=== PATIENT | female | born 1935 | race Caucasian/White ===

== ENCOUNTER 2017-07-11 11:15 | Outpatient (CLI) | payer MEDICARE ==
--- NOTE | 2017-07-13 10:33 | PET ---
PET CT: HISTORY: Stage 4 lung cancer. TECHNIQUE: A PET CT was performed from the skull base through the mid thigh after administration of 15.47 mCi of F18-FDG. FINDINGS: There are multiple peripheral pleural nodules in the right hemithorax. The largest measures approxim ately 3.7 cm in size. These nodules are all hypermetabolic with a maximum SUV value of 11.1. There is a right pleural effusion which is partially loculated. There is hypermetabolic activity in the ri ght hilar region which may represent a hypermetabolic right hilar lymph node versus a more medial ple ural plaque which is hypermetabolic. No other hypermetabolic lymph nodes are seen in the mediastinum or hilar regions. No hypermetabolic activity is seen in the left thorax. No suspicious hypermetabolic activity is seen in the neck, abdomen, or pelvis. Degenerative changes are seen in the spine. No suspicious hypermetabolic osseous lesions are identified. Atherosclerotic calcifications are seen in the aorta. IMPRESSION: Diffuse hypermetabolic activity throughout the right hemithorax. There are multiple hypermetabolic p leural nodules. Hypermetabolic activity in the right hilar region may represent a hypermetabolic rig ht hilar lymph node versus a more medial pleural plaque. POS: [facility]
== END 2017-07-11 11:16 | disposition home or self-care (01) ==
LOC: PET 11:15
PROVIDERS: ATTEND Internal Medicine Hematology & Oncology
DX: C34.81 Malignant neoplasm of overlapping sites of right bronchus and lung (principal); R91.8 Other nonspecific abnormal finding of lung field
CPT/HCPCS: 78815; A9552

== ENCOUNTER 2017-07-25 08:31 | Emergency (ER) | payer MEDICARE ==
[2017-07-25 09:54] LABS: Hematocrit 37.2 % (36.0-47.0); Mean Platelet Volume 9.6 fL (7.4-10.4); Neutrophil 5 % (42-75); Red Blood Cell (RBC) Count 4.26 mill/uL (4.20-5.40); White Blood Cell (WBC) Count 0.7 thou/uL (4.8-10.8)
[2017-07-25 10:04] LABS: Lactic Acid - Sepsis 1.2 mmol/L (0.5-2.2)
[2017-07-25 10:08] LABS: ALT (SGPT) 17 U/L (8-55); AST (SGOT) 32 U/L (5-34); Alkaline Phosphatase 62 U/L (40-150); Anion Gap 17 mmol/L (10-20); BUN (Urea Nitrogen) 16 mg/dL (9.8-20.1); Bilirubin, Total 0.6 mg/dL (0.2-1.2); CK (CPK) 27 U/L (29-168); Calc. Creatinine Clearance 0 mL/min (70-130); Calcium 10.2 mg/dL (7.8-10.44); Carbon Dioxide 26 mmol/L (23-31); Chloride 95 mmol/L (98-107); Estimated GFR-MDRD 86; Globulin 4.1 g/dL (2.4-3.5); Protein, Total 7.6 g/dL (6.0-8.3)
[2017-07-25 10:11] LABS: Troponin I 0.013 ng/mL (< 0.028)
[2017-07-25 10:39] LABS: Bilirubin Negative (Negative); Blood, Urine Small (Negative); Glucose, Urine (Dipstick) Negative (Negative); Ketone, Urine 15 mg/dL (Negative); Nitrite Negative (Negative); Protein, Urine (Dipstick) 30 mg/dL (Neg-Trace)
[2017-07-25 10:42] LABS: Bacteria/HPF None Seen HPF (None Seen); Hyaline Casts/LPF 0-3 HYALINE CAST LPF (0-3 Hyaline); Squamous Epithelial 0-3 HPF (0-3)
[2017-07-25] MEDS ORDERED: Cefepime 2 GM/10 ML SYR ONE (10:58)
[2017-07-25 11:03] LABS: Renal Epithelial None Seen HPF (0-3); Transitional Epithelial NONE SEEN HPF (0-3)
--- NOTE | 2017-07-25 11:18 | RAD ---
AP VIEW CHEST: Date: 07/25/17 HISTORY: Weakness. FINDINGS: Comparison made to previous exam from 05/03/05. AP view of chest demonstrates a right-sided chest tube in place. There is some right pleural thickeni ng and a small right-sided pleural effusion. The left lung is well aerated. Calcification of the aort a is seen. IMPRESSION: Right-sided chest tube and right pleural thickening and small effusion. POS: [facility]
--- NOTE | 2017-07-25 13:35 | CON ---
DATE OF CONSULTATION: 07/25/2017 The patient is in the emergency room and being admitted on 07/25/2017. HISTORY OF PRESENT ILLNESS: Ms. 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 She got her first cycle of chemotherapy with carboplatin and etoposide approximately 10 days ago and for the last 4-5 days has gotten weaker as well as decreased her oral input at home. Notably, she had lost 30 pounds prior to the chemotherapy and has continued to not eat or drink very well at home. Her family was concerned s he was dehydrated because she was so weak she could not even walk to the bathroom. She was brought h ere by ambulance because of the weakness. She denies any fever at home, she states 3-4 days ago she had a temperature of 100.0, but nothing higher than that. No nausea or vomiting. She has had decrea sed urine output. Her pain in her right chest is much improved since during the chemotherapy and her breathing is much improved. She denies any increased cough or shortness of breath above her baselin e. She is on oxygen at home because of the malignant pleural effusion as well as emphysema. She is now able to lie flat and feels like her breathing overall is much improved. She simply complains of not being able to eat or drink. PAST MEDICAL HISTORY: Emphysema. CURRENT OUTPATIENT MEDICATIONS: 1. Megace prescription had been written, but had not been started because of her inability to get it . 2. All other medications per the ER chart, notably she does take antihypertensives. ALLERGIES: CLINDAMYCIN. SOCIAL HISTORY: She has a long history of tobacco use, but did quit. She is here with her a nd children who are quite supportive. She denies any alcohol use. FAMILY HISTORY: Negative for lung malignancy. REVIEW OF SYSTEMS: Otherwise, 10-point review of systems is negative. Please see history of present illness. PHYSICAL EXAMINATION: VITAL SIGNS: Blood pressure 115/90, pulse 115, O2 sat 93% on 2 liters nasal cannula. GENERAL: She is lying supine in no acute distress, quite pleasant and conversive. HEENT: Extraocular muscles are intact. Her mucous membranes are dry. NECK: Supple, without lymphadenopathy. CARDIOVASCULAR: Regular rhythm, slightly tachycardic. LUNGS: Decreased breath sounds throughout consistent with COPD, likely worse on the right. Her Pleu rX catheter is in place. It is clean, dry, and intact. It had decreased output and it has no erythe ma surrounding the tube. ABDOMEN: Normoactive bowel sounds, soft, nontender, nondistended. EXTREMITIES: Trace pitting edema bilaterally, negative Homans sign: No petechia. LABORATORY AND X-RAY FINDINGS: 1. White blood cell count 0.7, hemoglobin 12.9, platelets 38. She has 87% lymphocytes. Sodium 135, potassium 3.4, chloride 95, BUN 16, creatinine 0.6, glucose 86, calcium 10.2, magnesium 2.0, total b ilirubin 0.6, AST 32, ALT 17. 2. Urinalysis is yellow and clear with a specific gravity of 1.016. 3. Chest x-ray shows a right-sided changes consistent with a pleural effusion or pleural malignancy as well as a PleurX catheter in place in the right chest wall. ASSESSMENT: Ms. Veliz is an 81-year-old female with: 1. Extensive stage small cell lung cancer. 2. Emphysema and chronic obstructive pulmonary disease. 3. Dehydration. 4. Neutropenia and thrombocytopenia secondary to chemotherapy. PLAN: 1. She has had low-grade temperatures at home, so I would recommend we treat her for the febrile kimberly tropenia protocol. We will start Neupogen at 300 mcg subcu every day. She did not receive Neulasta as an outpatient. 2. We will follow her platelets closely. As she is hydrated, she will likely become more thrombocyt openic and may need a platelet transfusion. 3. If she is admitted to our facility, we will consult Pulmonary to discuss the management of the Pl eurX catheter. 4. It is my understanding that insurance is being worked out to see if she can stay in our facility or needs to be transferred to [facility]. She does have followup with me next week after the [facility] holiday to follow her improvement. She will keep this appointment for now and see where she is admitted.
== END 2017-07-25 12:33 | disposition short-term general hospital (02) ==
LOC: ERS 08:31
DX: D70.9 Neutropenia, unspecified (principal); R50.81 Fever presenting with conditions classified elsewhere; R53.1 Weakness; J44.9 Chronic obstructive pulmonary disease, unspecified; Z87.891 Personal history of nicotine dependence; Z79.899 Other long term (current) drug therapy; Z79.82 Long term (current) use of aspirin; Z79.891 Long term (current) use of opiate analgesic
CPT/HCPCS: 36415; 71010; 80053; 81003; 81015; 82553; 83605; 83735; 84484; 85025; 85060; 87040; 93005; 96361; 96365; 96375; J0692; J3370

== ENCOUNTER 2017-12-24 12:28 | Outpatient (CLI) | payer MEDICARE ==
--- NOTE | 2017-12-24 16:03 | PET ---
PET WITH CT FROM SKULL TO MID THIGH: INDICATION: History of lung cancer. TECHNIQUE: PET images were obtained following IV administration of 12.43 mCi F18-FDG IV. CT images were obtained for attenuation correction purposes only. The exam is compared with the prior dated 07/11/17. FINDINGS: Biodistribution: The biodistribution for the examination appears acceptable. Head/Neck: No hypermetabolic lymphadenopathy or mass is demonstrated in the head/neck region. Thorax: There has been significant improvement in loculated pleural effusion involving the right hemithorax w ith resolution of numerous metastatic pleural nodules. There is a residual large metastatic pleural l esion that has intervally enlarged in the right lung apex, however, from the prior examination, now m easuring up to 6.5 cm with a peak SUV uptake of 10.84 and mean uptake of 9.8. There has been signific ant reduction in the extent of the hypermetabolic pulmonary nodularity involving the right upper lobe . The 8.0 mm pulmonary nodule within the right upper lobe has a peak SUV uptake of 2.2. Emphysema is similar appearing. There has been interval enlargement of a large right hilar lymph node measuring up to 5.2 cm with peak SUV uptake of 14.2 and a mean uptake of 3.5. No additional hypermetabolic lympha denopathy is evident. Abdomen/Pelvis: No hypermetabolic mass or lymphadenopathy is evident. There is background activity seen within the re nal collecting systems, as well as within the bowel and liver. Skin/Osseous Structures: No hypermetabolic skin or osseous lesion is identified. IMPRESSION: Abnormal PET CT: Findings of mixed response to therapy. There has been significant improvement in the number of hypermetabolic pleural metastatic lesions aff ecting the right hemithorax with improvement in the loculated right-sided pleural effusion; however, there has been interval enlargement of a large pleural based metastatic lesion involving the right anai ng apex. This measures 6.5 cm in size with a peak uptake of 10.84 cm. There has also been interval en largement of a right hilar lymph node measuring up to 5.2 cm with peak activity of 14.23 cm. POS: [facility]
== END 2017-12-24 12:29 | disposition home or self-care (01) ==
LOC: PET 12:28
PROVIDERS: ATTEND Internal Medicine Hematology & Oncology
DX: C78.2 Secondary malignant neoplasm of pleura (principal); C34.90 Malignant neoplasm of unspecified part of unspecified bronchus or lung
CPT/HCPCS: 78815; A9552